=== PATIENT | female | born 1960 | race Caucasian/White ===

== ENCOUNTER → 2024-11-13 09:23 | Outpatient (REF) | payer MEDICARE, SELFPAY | LOC: HWWDC 09:23 | PROVIDERS: ATTENDING PHYSICIAN Obstetrics & Gynecology Gynecology; FAMILY PHYSICIAN Family Medicine | DX: Z12.31 Encounter for screening mammogram for malignant neoplasm of breast (principal) | CPT/HCPCS: 77063; 77067 ==

== ENCOUNTER 2024-12-20 06:22 | Day surgery (SDC) | payer MEDICARE, SELFPAY | END 2024-12-20 12:48 | disposition home or self-care (01) | LOC: GI 06:22 | PROVIDERS: ATTENDING PHYSICIAN Internal Medicine Gastroenterology | DX: Z12.11 Encounter for screening for malignant neoplasm of colon (principal); D12.3 Benign neoplasm of transverse colon; K63.5 Polyp of colon; K57.30 Diverticulosis of large intestine without perforation or abscess without bleeding; Z86.0101 Personal history of adenomatous and serrated colon polyps | CPT/HCPCS: 45385; 45380; 45382; 88305 ==

== ENCOUNTER → 2025-04-23 08:30 | Outpatient (REF) | payer MEDICARE, SELFPAY | LOC: HWRAD 08:30 | PROVIDERS: ATTENDING PHYSICIAN Nurse Practitioner Family; FAMILY PHYSICIAN Family Medicine | DX: S97.81XA Crushing injury of right foot, initial encounter (principal) | CPT/HCPCS: 73630 ==